=== PATIENT | male | born 1985 | race American Indian/Alaskan Native ===

== ENCOUNTER 2017-12-21 14:47 | Emergency (ER) | payer MEDICAID, OTHER ==
[2017-12-21 15:18] VITALS: TEMP 99.7
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
--- NOTE | 2017-12-21 17:02 | RAD ---
Date of service: 12/21/2017 PROCEDURE: Right Knee Radiographs. HISTORY: knee pain COMPARISON: None. FINDINGS: BONES: Normal. No fracture. JOINTS: Normal. No osteoarthritis. JOINT EFFUSION: None. OTHER FINDINGS: None. IMPRESSION: Normal radiographs of the right knee.
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
[2017-12-21 17:44] VITALS: RESP 17
[2017-12-21 18:03] VITALS: BP 149/80; PULSE 71; O2SAT 98
== END 2017-12-21 18:03 | disposition home or self-care (01) ==
LOC: ED 14:47
DX: M25.511 Pain in right shoulder (principal); M54.5 Low back pain; M25.561 Pain in right knee
CPT/HCPCS: 72110; 73030; 73562; 96372; 99285; J1885